=== PATIENT | female | born 1945 | race Caucasian/White ===

== ENCOUNTER 2024-10-21 09:44 | Inpatient (IN) | payer MEDICARE ==
[2024-10-21] MEDS ORDERED: Acetaminophen 325 MG TAB PO PRN (12:00)
[2024-10-21] MEDS ORDERED: Calcium Carbonate 500 MG ChewTAB PO PRN (12:00)
[2024-10-21] MEDS ORDERED: Senokot S 8.6-50 MG TAB PO PRN (12:00)
[2024-10-21] MEDS ORDERED: Melatonin 3 MG TAB PO PRN (12:07)
[2024-10-21 18:36] VITALS: BMI 21.0
[2024-10-21] MEDS: Gabapentin 300 MG CAP PO SCH (20:21)
[2024-10-21] MEDS: HYDROcodone/Acetaminophen 5/325 mg Tablet PO PRN (20:22)
[2024-10-21] MEDS: Aspirin 81 mg Enteric Coated Tablet PO SCH (20:23)
[2024-10-21] MEDS: Famotidine 20 MG TAB PO SCH (20:23)
[2024-10-22 06:07] LABS: #Basophils 0.1 thou/uL (0.0-0.2); #Eosinophils 0.2 thou/uL (0.0-0.7); #Lymphocytes 1.6 thou/uL (1.20-3.40); #Monocytes 0.9 thou/uL (0.11-0.59); #Neutrophils 4.6 thou/uL (1.40-6.50); %Basophils 0.9 % (0.0-1.0); %Eosinophils 2.3 % (0.0-10.0); %Lymphocytes 21.4 % (21.0-51.0); %Monocytes 11.7 % (0.0-10.0); %Neutrophils 63.7 % (42.0-75.0); Hematocrit 31.4 % (36.0-47.0); Hemoglobin 9.8 g/dL (12.0-16.0); Mean Corpuscular Hemoglobin 28.7 pg (27.0-31.0); Mean Corpuscular Volume 92.5 fl (78.0-98.0); Mean Platelet Volume 8.5 fL (7.4-10.4); Platelet Count 146 10x3/uL (130-400); RBC Distribution Width 12.2 % (11.5-14.5); White Blood Cell (WBC) Count 7.3 10x3/uL (4.8-10.8)
[2024-10-22 06:19] LABS: ALT (SGPT) 13 U/L (Less than 34); AST (SGOT) 34 U/L (11-34); Albumin 3.2 g/dL (3.1-4.5); Alkaline Phosphatase 50 U/L (40-110); Anion Gap 12 mmol/L (10-20); BUN (Urea Nitrogen) 13 mg/dL (9.8-20.1); Bilirubin, Total 0.5 mg/dL (0.3-1.2); Calc. Creatinine Clearance 52 mL/min (70-130); Calcium 9.4 mg/dL (7.8-10.44); Carbon Dioxide 27 mmol/L (23-31); Chloride 107 mmol/L (98-107); Estimated GFR 73; Globulin 2.6 g/dL (2.4-3.5); Glucose 96 mg/dL (83-110); Potassium 3.7 mmol/L (3.5-5.1); Protein, Total 5.8 g/dL (5.8-8.1); Sodium 142 mmol/L (136-145)
[2024-10-22] MEDS: CeleCOXIB 100 MG CAP PO SCH (08:59)
[2024-10-22] MEDS: Ferrous Sulfate 325 MG TAB PO SCH (09:00)
[2024-10-22] MEDS: Ascorbic Acid 500 mg Chewable Tablet PO SCH (09:00)
[2024-10-22] MEDS: Polyethylene Glycol 3350 17 GM Packet PO SCH (09:01)
[2024-10-22] MEDS: HYDROcodone/Acetaminophen 10/325 mg Tablet PO SCH (19:46)
[2024-10-23] MEDS ORDERED: Acetaminophen 325 MG TAB PO PRN (08:10)
[2024-10-23] MEDS: HYDROcodone/Acetaminophen 10/325 mg Tablet PO PRN (09:46)
[2024-10-23] MEDS: Melatonin 3 MG TAB PO SCH (20:51)
[2024-10-25] MEDS: traMADol HCl 50 MG TAB PO SCH ×3 (10:22→20:09)
[2024-10-25] MEDS: Diclofenac 1% 100 GM Topical GEL TP SCH (12:33)
[2024-10-27 05:48] LABS: #Basophils 0.1 thou/uL (0.0-0.2); #Eosinophils 0.2 thou/uL (0.0-0.7); #Monocytes 0.9 thou/uL (0.11-0.59); #Neutrophils 3.3 thou/uL (1.40-6.50); %Basophils 1.3 % (0.0-1.0); %Eosinophils 3.4 % (0.0-10.0); %Lymphocytes 30.8 % (21.0-51.0); %Monocytes 14.1 % (0.0-10.0); %Neutrophils 50.4 % (42.0-75.0); Hematocrit 33.1 % (36.0-47.0); Hemoglobin 10.6 g/dL (12.0-16.0); Mean Corpuscular HGB CONC 32.1 g/dL (32.0-36.0); Mean Corpuscular Hemoglobin 29.4 pg (27.0-31.0); Mean Corpuscular Volume 91.6 fl (78.0-98.0); Mean Platelet Volume 7.1 fL (7.4-10.4); Platelet Count 240 10x3/uL (130-400); Red Blood Cell (RBC) Count 3.61 mill/uL (4.20-5.40); White Blood Cell (WBC) Count 6.5 10x3/uL (4.8-10.8)
[2024-10-27 06:13] VITALS: BMI 21.1
[2024-10-28 05:54] LABS: #Basophils 0.1 thou/uL (0.0-0.2); #Eosinophils 0.3 thou/uL (0.0-0.7); #Lymphocytes 2.1 thou/uL (1.20-3.40); #Monocytes 0.9 thou/uL (0.11-0.59); #Neutrophils 3.1 thou/uL (1.40-6.50); %Basophils 1.5 % (0.0-1.0); %Eosinophils 4.1 % (0.0-10.0); %Monocytes 14.1 % (0.0-10.0); %Neutrophils 47.3 % (42.0-75.0); Hematocrit 31.4 % (36.0-47.0); Hemoglobin 10.1 g/dL (12.0-16.0); Mean Corpuscular HGB CONC 32.1 g/dL (32.0-36.0); Mean Corpuscular Hemoglobin 29.4 pg (27.0-31.0); Mean Corpuscular Volume 91.4 fl (78.0-98.0); Mean Platelet Volume 7.8 fL (7.4-10.4); Platelet Count 230 10x3/uL (130-400); RBC Distribution Width 11.7 % (11.5-14.5); Red Blood Cell (RBC) Count 3.44 mill/uL (4.20-5.40); White Blood Cell (WBC) Count 6.5 10x3/uL (4.8-10.8)
[2024-10-28] MEDS: Ondansetron ODT 4 MG TAB PO PRN (08:51)
[2024-10-28] MEDS: HYDROcodone/Acetaminophen 5/325 mg Tablet PO PRN (14:03)
[2024-10-29 05:56] LABS: #Basophils 0.1 thou/uL (0.0-0.2); #Eosinophils 0.2 thou/uL (0.0-0.7); #Lymphocytes 2.4 thou/uL (1.20-3.40); #Monocytes 0.8 thou/uL (0.11-0.59); #Neutrophils 2.9 thou/uL (1.40-6.50); %Basophils 1.4 % (0.0-1.0); %Eosinophils 3.4 % (0.0-10.0); %Lymphocytes 37.6 % (21.0-51.0); %Neutrophils 44.6 % (42.0-75.0); Hematocrit 32.6 % (36.0-47.0); Hemoglobin 10.1 g/dL (12.0-16.0); Mean Corpuscular Hemoglobin 28.5 pg (27.0-31.0); Mean Platelet Volume 7.3 fL (7.4-10.4); Platelet Count 253 10x3/uL (130-400); RBC Distribution Width 12.3 % (11.5-14.5); Red Blood Cell (RBC) Count 3.54 mill/uL (4.20-5.40); White Blood Cell (WBC) Count 6.4 10x3/uL (4.8-10.8)
[2024-10-29 06:10] LABS: Anion Gap 8 mmol/L (10-20); BUN (Urea Nitrogen) 21 mg/dL (9.8-20.1); Calc. Creatinine Clearance 55 mL/min (70-130); Calcium 10.1 mg/dL (7.8-10.44); Carbon Dioxide 33 mmol/L (23-31); Chloride 103 mmol/L (98-107); Estimated GFR 78; Glucose 95 mg/dL (83-110); Potassium 4.2 mmol/L (3.5-5.1); Sodium 140 mmol/L (136-145)
[2024-10-31 07:28] VITALS: BP 120/62; TEMP 97.9
== END 2024-10-31 11:40 | disposition home or self-care (01) | DRG 561 ==
LOC: NAV ACUTE 18:07
PROVIDERS: ADMIT Student in an Organized Health Care Education/Training Program; ATTEND Student in an Organized Health Care Education/Training Program
DX: Z47.1 Aftercare following joint replacement surgery (principal); Z96.651 Presence of right artificial knee joint; R53.81 Other malaise; D64.9 Anemia, unspecified; G43.909 Migraine, unspecified, not intractable, without status migrainosus; M19.90 Unspecified osteoarthritis, unspecified site; Z79.82 Long term (current) use of aspirin; Z79.899 Other long term (current) drug therapy; Z90.710 Acquired absence of both cervix and uterus
CPT/HCPCS: 36415; 80048; 80053; 85025; Q0162